=== PATIENT | female | born 1950 | race Caucasian/White ===

== ENCOUNTER → 2019-12-06 | Outpatient (CLI) | payer MEDICARE, OTHER ==
[2015-11-22 11:30] VITALS: BP 108/88
[~2019-12-06] MED LIST: CENTRUM SILVER1 EACH PO; LEVOTHYROXIN0.088 MG PO; NAPROSYN PO; NORCO 325 MG-51 TAB PO; SYNTHROID0.15 MG PO
== END ==
LOC: RAD 13:54
DX: R10.31 Right lower quadrant pain (principal)
CPT/HCPCS: Q9967

== ENCOUNTER → 2021-11-10 | Outpatient (CLI) | payer MEDICARE, OTHER | LOC: MAMMO 10:45 | DX: Z12.31 Encounter for screening mammogram for malignant neoplasm of breast (principal) ==

== ENCOUNTER → 2023-10-10 | Outpatient (CLI) | payer MEDICARE, OTHER | LOC: RAD 09:24 | DX: M54.6 Pain in thoracic spine (principal); V80.010A Animal-rider injured by fall from or being thrown from horse in noncollision accident, initial encounter ==

== ENCOUNTER → 2024-02-09 | Outpatient (CLI) | payer MEDICARE, OTHER | LOC: MAMMO 09:29 | DX: Z12.31 Encounter for screening mammogram for malignant neoplasm of breast (principal) ==